=== PATIENT | female | born 1965 | race Caucasian/White ===

== ENCOUNTER → 2018-11-13 | Day surgery (SDC) | payer BC ==
--- NOTE | 2018-11-14 14:38 | OR ---
DATE OF OPERATION: 11/13/2018 PREOPERATIVE DIAGNOSIS: DOCUMENTED VENOUS INSUFFICIENCY WITH PAINFUL VARICOSITIES. POSTOPERATIVE DIAGNOSIS: DOCUMENTED VENOUS INSUFFICIENCY WITH PAINFUL VARICOSITIES. SURGEON: Jose Francisco Garcia MD PROCEDURE: VALERIA, RIGHT GSV. ANESTHESIA: Local with tumescent. COMPLICATIONS: None. SPECIMEN: None. FINDINGS: Successful VALERIA, right GSV. INDICATIONS: The patient has documented saphenofemoral insufficiency. She elects to proceed with endovenous ablation due to her painful varicosities. DESCRIPTION OF PROCEDURE: The patient was brought to the operating room suite and the insufficient saphenous vein mapped via ultrasound and diagrammed on the overlying skin along with axis site down at the level of the knee. The patient's right lower extremity was prepped and draped in sterile fashion. She was put in reverse Trendelenburg position. Local anesthesia was instilled at the access site. The vein was accessed using ultrasound guidance and Seldinger technique in usual fashion with the guidewire inserted through the needle. The needle was removed and a small 11 blade was used to make an incision at the access site. The guidewire was exchanged for a 6-Kinyarwanda sheath without complication and held in place with skin tension. After guidewire was removed, the sheath was flushed and the radiofrequency probe was placed into the vein through the sheath and positioned approximately 2 cm distal to the saphenofemoral junction under ultrasound guidance. Once probe position verified, tumescent anesthesia was infiltrated into the perivenous compartment with ultrasound guidance creating a halo effect from the level of the access site to the saphenofemoral junction in usual fashion. The patient was then placed back in Trendelenburg position to exsanguinate the superficial system and radiofrequency probe position was confirmed with ultrasound. With direct external compression along the length of the heating element, radiofrequency energy was applied. The vein was ablated heating a 7 cm segment, indexing the catheter forward 6.5 cm until treatment length complete. Device temperature was maintained at 120 degrees Celsius with an initial power level of 40 valentin dropping to below 20 for each treatment. Total treatment time was 3 minutes with 250 mL of tumescent used and a total of 9 radiofrequency cycles. Ultrasound confirmed successful treatment. The catheter and sheath were withdrawn in usual fashion. The skin incision was closed with a routine bandage and the patient's leg was wrapped in compression from the level of the foot to the groin and she was stable in the recovery room. CHUCKY/PITO /[id number]
== END ==
LOC: CC.SDS 07:49
PROVIDERS: ATTEND Family Medicine
DX: I83.811 Varicose veins of right lower extremity with pain (principal); I87.2 Venous insufficiency (chronic) (peripheral)
CPT/HCPCS: A4216

== ENCOUNTER 2023-10-05 17:27 | Emergency (ER) | payer BC ==
[2023-10-05] MEDS: Dexamethasone 4 MG/ML SDV IM ONE (18:00)
[2023-10-05] MEDS ORDERED: Dexamethasone 4 MG/ML SDV ONE (18:02)
[2023-10-05] MEDS: Codeine/Promethazine 10-6.25 MG/5 ML Syrup 5 ML UD Cup PO PRN (18:03)
[2023-10-05] MEDS: Albuterol 6.7 GM Inhaler INH ONE (18:06)
[2023-10-05] MEDS: Take Home: Codeine/Promethazine 10-6.25 MG/5 ML Syrup 5 ML, 2 Cup Pack PO ONE (18:08)
== END 2023-10-05 18:20 | disposition home or self-care (01) ==
LOC: CC.ED 17:27
DX: J45.909 Unspecified asthma, uncomplicated (principal); Z86.16 Personal history of COVID-19; Z88.2 Allergy status to sulfonamides; Z88.1 Allergy status to other antibiotic agents
CPT/HCPCS: 71045; 96372; 99283; A9270-GY; J1100